=== PATIENT | male | born 1950 | race Caucasian/White ===

== ENCOUNTER 2020-01-28 11:37 | Emergency (ER) | payer MEDICARE, MEDICAID ==
[2020-01-28 11:56] VITALS: BP 166/85
[2020-01-28] MEDS ORDERED: allopurinoL 100 MG TABLET PO SCH (12:06)
[2020-01-28] MEDS ORDERED: INDOMETHACIN 25 MG CAPSULE PO STA (12:07)
--- NOTE | 2020-01-28 12:10 | ED Physician Documentation ---
History of Present Illness - Stated complaint Stated Complaint: RT LEG/FOOT PX - Chief complaint Chief Complaint: Ext Problem - Additonal information Additional information: Patient comes emergency department complaining of right lower extremity swelling which started in his ankle. He states he did not have any injury. The pain and swelling started in ankle and spread down into his foot. He states this is consistent with previous flareups of his gout. He denies any fevers or chills. He does not have any streaking going up his leg. He has noticed mild erythema. Patient denies any skin injuries recently. No puncture wound to his foot. He states that he does take medicine for gout when he has a flareup, but he cannot remember which medication he has been on. He states he has 1 kidney because of a left nephrectomy from renal carcinoma within the last few years, but states that his remaining kidney is functioning well. No other complaints at this time. Review of Systems Ten Systems: 10 systems reviewed and negative Constitutional: reports: Reviewed and negative Eyes: reports: Reviewed and negative Ears: reports: Reviewed and negative Nose: reports: Reviewed and negative Throat: reports: Reviewed and negative Cardiac: reports: Reviewed and negative Respiratory: reports: Reviewed and negative GI: reports: Reviewed and negative : reports: Reviewed and negative Skin: reports: Other (Erythema, Right foot and ankle) Musculoskeletal: reports: Joint pain (Right ankle) Neurologic: reports: Reviewed and negative Psychiatric: reports: Reviewed and negative Endocrine: reports: Reviewed and negative Immunocompromised: reports: Reviewed and negative PD PAST MEDICAL HISTORY - Past Medical History Past Medical History: Yes Cardiovascular: Hypertension, High cholesterol, Coronary artery disease, Atrial fibrillation, Murmur Endocrine/Autoimmune: Type 2 diabetes - Past Surgical History Past Surgical History: Yes General: Bowel surgery Cardiovascular: Coronary stent, AICD - Present Medications Home Medications: Ambulatory Orders Medication Instructions Recorded Confirmed Colchicine [Colcrys] 0.6 mg PO DAILY 7 Days #7 tablet 01/28/20 Metoprolol Succinate 100 mg PO 01/28/20 Oxycodone HCl/Acetaminophen 1 - 2 each PO Q6H PRN #12 tablet 01/28/20 [Percocet 5-325 mg Tablet] hydroCHLOROthiazide 12.5 mg PO 01/28/20 [Hydrochlorothiazide] metFORMIN [Glucophage] 2,000 BID 01/28/20 predniSONE [Prednisone] 60 mg PO DAILY #15 tablet 01/28/20 - Allergies Allergies/Adverse Reactions: Allergies Allergy/AdvReac Type Severity Reaction Status Date / Time No Known Drug Allergies Allergy Verified 01/28/20 11:47 - Social History Does the pt smoke?: No Smoking Status: Never smoker Does the pt drink ETOH?: No Does the pt have substance abuse?: No - Immunizations Immunizations are current?: Yes - POLST Patient has POLST: No PD ED PE NORMAL - Vitals Vital signs reviewed: Yes - General General: Alert and oriented X 3, No acute distress - HEENT HEENT: Atraumatic, PERRL, EOMI, Moist mucous membranes - Neck Neck: Supple, no meningeal sign - Cardiac Cardiac: RRR, No murmur, Strong equal pulses - Respiratory Respiratory: No respiratory distress, Clear bilaterally - Abdomen Abdomen: Soft, Non tender, Non distended - Derm Derm: Warm and dry, Other (Patient has very mild erythema of his right foot and ankle. No distinct rash. No streaking.) - Extremities Extremities: No deformity, No calf tenderness / cord, Other (Patient has moderate edema of his right foot and ankle with moderate tenderness to palpation . This is nonpitting. No contusion.) - Neuro Neuro: Alert and oriented X 3, intelligence officer 2-12 intact, No motor deficit, No sensory deficit, Normal speech - Psych Psych: Normal mood, Normal affect Results - Vitals Vitals: Vital Signs - 24 hr 01/28/20 11:51 Temperature 36.6 C Heart Rate 65 Respiratory 16 Rate Blood Pressure 166/85 H O2 Saturation 96 Oxygen O2 Source Room air PD MEDICAL DECISION MAKING - ED course Complexity details: reviewed old records, re-evaluated patient, considered differential, d/w patient ED course: Patient was given doses of allopurinol and indomethacin in the emergency department. We have discussed home management of the gout symptoms, as well as usual indications for return. Departure - Departure Disposition: 01 Home, Self Care Clinical Impression: Gout of foot Qualifiers: Gout etiology: unspecified cause Chronicity: acute Laterality: right Qualified Code(s): M10.9 - Gout, unspecified Instructions: ED Arthritis Gout Prescriptions: Colchicine [Colcrys] 0.6 mg PO DAILY 7 Days #7 tablet Oxycodone HCl/Acetaminophen [Percocet 5-325 mg Tablet] 1 - 2 each PO Q6H PRN #12 tablet PRN Reason: pain predniSONE [Prednisone] 60 mg PO DAILY #15 tablet Discharge Date/Time: 01/28/20 12:41
[2020-01-28] MEDS ORDERED: allopurinoL 100 MG TABLET PO STA (12:13)
== END 2020-01-28 12:41 | disposition home or self-care (01) ==
LOC: ED 11:37
DX: M10.9 Gout, unspecified (principal); I10 Essential (primary) hypertension; E11.9 Type 2 diabetes mellitus without complications; Z79.84 Long term (current) use of oral hypoglycemic drugs; Z90.5 Acquired absence of kidney
CPT/HCPCS: 99282; 99284; A9270

== ENCOUNTER 2022-09-11 21:41 | Emergency (ER) | payer MEDICARE, MEDICAID ==
[2022-09-11] MEDS ORDERED: TETANUS/DIPHTHERIA/PERTUSSIS 0.5 ML SYRINGE IM ONE (21:58)
[2022-09-11] MEDS ORDERED: HYDROmorphone 1 MG/ML CARPUJECT IVP STA ×2 (21:59→23:16)
[2022-09-11] MEDS ORDERED: BUPIVACAINE 0.5% PF 10 ML VIAL SUBQ STA (22:20)
[2022-09-11] MEDS ORDERED: BUPIVACAINE 0.25% PF 30 ML VIAL SUBQ STA (22:20)
[2022-09-11 22:22] LABS: BASOPHILS % (AUTO) 0.5 %; EOSINOPHILS # (AUTO) 0.1 10^3/uL (0.0-0.7); EOSINOPHILS % (AUTO) 1.2 %; HCT - HEMATOCRIT 40.9 % (42.0-52.0); HGB - HEMOGLOBIN 14.1 g/dL (14.0-18.0); LYMPHOCYTES # (AUTO) 2.3 10^3/uL (1.5-3.5); LYMPHOCYTES % (AUTO) 38.3 %; MEAN CORPUSCULAR HEMOGLOBIN 30.8 pg (27.0-31.0); MEAN CORPUSCULAR HGB CONC 34.5 g/dL (32.0-36.0); MEAN CORPUSCULAR VOLUME 89.3 fL (80.0-94.0); MONOCYTES # (AUTO) 0.6 10^3/uL (0.0-1.0); MONOCYTES % (AUTO) 9.2 %; NEUTROPHILS % (AUTO) 50.5 %; PLT - PLATELET COUNT 116 10^3/uL (130-450); RED BLOOD COUNT 4.58 10^6/uL (4.70-6.10); RED CELL DISTRIBUTION WIDTH 12.7 % (12.0-15.0)
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
[2022-09-11 22:33] LABS: ALBUMIN 4.8 g/dL (3.2-5.5); ALBUMIN/GLOBULIN RATIO 1.3 (1.0-2.2); BILIRUBIN,TOTAL 0.5 mg/dL (0.2-1.0); CALCIUM 9.1 mg/dL (8.5-10.3); CREATININE 1.7 mg/dL (0.6-1.2); POTASSIUM 3.8 mmol/L (3.5-5.0); TOTAL PROTEIN 8.5 g/dL (6.7-8.2)
[2022-09-11 22:41] LABS: INR 0.9 (0.8-1.2); PT - PROTHROMBIN TIME 10.7 secs (9.9-12.6)
[2022-09-11] MEDS ORDERED: ceFAZolin 1 GM in SODIUM CHLORIDE 0.9% MINIBAG 100 ML IV STA (22:43)
[2022-09-11] MEDS ORDERED: ceFAZolin 2 GM in SODIUM CHLORIDE 0.9% 100ML 100 ML IV STA (22:46)
[2022-09-11] MEDS ORDERED: GENTAMICIN IV ONE (22:47)
[2022-09-11] MEDS ORDERED: SODIUM CHLORIDE 0.9% IV ONE (22:47)
[2022-09-11] MEDS ORDERED: ceFAZolin 1 GM VIAL ONE (23:03)
[2022-09-11 23:49] VITALS: BP 168/100
[2022-09-12 00:23] LABS: B. PARAPERTUSSIS- RESP PCR PAN NOT DETECTED; B. PERTUSSIS- RESP PCR PANEL NOT DETECTED; C. PNEUMONIAE- RESP PCR PANEL NOT DETECTED; CORONAVIRUS 229E-RESP PCR NOT DETECTED; CORONAVIRUS HKU1-RESP PCR NOT DETECTED; CORONAVIRUS NL63-RESP PCR NOT DETECTED; CORONAVIRUS OC43-RESP PCR NOT DETECTED; HUMAN METAPNEUMOVIRUS NOT DETECTED; INFLUENZA A- RESP PCR PANEL NOT DETECTED; INFLUENZA B - RESP PCR PANEL NOT DETECTED; M. PNEUMONIAE- RESP PCR PANEL NOT DETECTED; PARAINFLUENZA VIRUS 1 NOT DETECTED; PARAINFLUENZA VIRUS 2 NOT DETECTED; PARAINFLUENZA VIRUS 3 NOT DETECTED; PARAINFLUENZA VIRUS 4 NOT DETECTED; RHINOVIRUS/ENTEROVIRUS NOT DETECTED; RSV- RESP PCR PANEL NOT DETECTED; SARS-CoV-2 -RESP PCR PANEL NOT DETECTED
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
== END 2022-09-11 23:52 | disposition short-term general hospital (02) ==
LOC: ED 21:41
DX: S62.392B Other fracture of third metacarpal bone, right hand, initial encounter for open fracture (principal); S62.614B Displaced fracture of proximal phalanx of right ring finger, initial encounter for open fracture; S62.616B Displaced fracture of proximal phalanx of right little finger, initial encounter for open fracture; W34.00XA Accidental discharge from unspecified firearms or gun, initial encounter
CPT/HCPCS: 36415; 64450; 73130; 80053; 83690; 85025; 85610; 87633; 90471; 90715; 96365; 96375; 96376; 99285; J1170; J1580

== ENCOUNTER 2022-09-11 23:50 | Outpatient (CLI) | payer MEDICARE, MEDICAID | END 2022-09-11 23:51 | disposition short-term general hospital (02) | LOC: EMS 23:50 | PROVIDERS: ATTEND Emergency Medicine | DX: S62.91XB Unspecified fracture of right hand, initial encounter for open fracture (principal); X95.9XXA Assault by unspecified firearm discharge, initial encounter | CPT/HCPCS: A0425; A0426 ==

== ENCOUNTER 2022-09-14 14:53 | Emergency (ER) | payer MEDICARE, MEDICAID ==
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
[2022-09-14 16:01] LABS: BASOPHILS % (AUTO) 0.7 %; EOSINOPHILS % (AUTO) 0.9 %; HCT - HEMATOCRIT 32.6 % (42.0-52.0); LYMPHOCYTES # (AUTO) 0.9 10^3/uL (1.5-3.5); LYMPHOCYTES % (AUTO) 18.6 %; MEAN CORPUSCULAR HEMOGLOBIN 30.6 pg (27.0-31.0); MEAN CORPUSCULAR HGB CONC 33.7 g/dL (32.0-36.0); MEAN CORPUSCULAR VOLUME 90.8 fL (80.0-94.0); MEAN PLATELET VOLUME 11.9 fL (7.4-11.4); MONOCYTES # (AUTO) 0.4 10^3/uL (0.0-1.0); MONOCYTES % (AUTO) 9.6 %; NEUTROPHILS # (AUTO) 3.2 10^3/uL (1.5-6.6); NEUTROPHILS % (AUTO) 69.8 %; PLT - PLATELET COUNT 74 10^3/uL (130-450); RED BLOOD COUNT 3.59 10^6/uL (4.70-6.10); RED CELL DISTRIBUTION WIDTH 12.6 % (12.0-15.0); WHITE BLOOD COUNT 4.6 x10^3/uL (4.8-10.8)
[2022-09-14 16:07] LABS: CALCIUM 8.6 mg/dL (8.5-10.3); CREATININE 1.9 mg/dL (0.6-1.2); MAGNESIUM 1.8 mg/dL (1.7-2.8); PHOSPHORUS 2.6 mg/dL (2.5-4.6); POTASSIUM 3.4 mmol/L (3.5-5.0)
[2022-09-14] MEDS ORDERED: AMIODARONE 200 MG TABLET PO STA (16:25)
[2022-09-14 16:37] VITALS: BP 154/100
== END 2022-09-14 16:42 | disposition home or self-care (01) ==
LOC: ED 14:53
DX: Z45.02 Encounter for adjustment and management of automatic implantable cardiac defibrillator (principal); Z95.810 Presence of automatic (implantable) cardiac defibrillator; I48.91 Unspecified atrial fibrillation; I10 Essential (primary) hypertension; E11.9 Type 2 diabetes mellitus without complications; Z79.84 Long term (current) use of oral hypoglycemic drugs
CPT/HCPCS: 36415; 80048; 83735; 84100; 85025; 93005; 99283; 99284; A9270

== ENCOUNTER 2022-09-14 22:29 | Outpatient (CLI) | payer MEDICARE, MEDICAID | END 2022-09-14 23:59 | disposition critical access hospital (66) | LOC: EMS 22:29 | DX: R06.81 Apnea, not elsewhere classified (principal); I49.9 Cardiac arrhythmia, unspecified; R47.81 Slurred speech | CPT/HCPCS: A0425; A0427 ==

== ENCOUNTER 2023-01-17 16:14 | Outpatient (CLI) | payer MEDICARE, MEDICAID | END 2023-01-17 23:59 | disposition short-term general hospital (02) | LOC: EMS 16:14 | DX: I49.8 Other specified cardiac arrhythmias (principal); I45.10 Unspecified right bundle-branch block; Z95.810 Presence of automatic (implantable) cardiac defibrillator | CPT/HCPCS: A0425; A0427 ==

== ENCOUNTER 2024-03-14 12:28 | Outpatient (CLI) | payer MEDICARE, MEDICAID | END 2024-03-14 23:59 | disposition critical access hospital (66) | LOC: EMS 12:28 | DX: M25.512 Pain in left shoulder (principal); M25.511 Pain in right shoulder; V43.52XA Car driver injured in collision with other type car in traffic accident, initial encounter; Y92.413 State road as the place of occurrence of the external cause; E11.65 Type 2 diabetes mellitus with hyperglycemia | CPT/HCPCS: A0425; A0427 ==

== ENCOUNTER 2024-03-14 12:44 | Emergency (ER) | payer MEDICARE, MEDICAID ==
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
[2024-03-14] MEDS: SODIUM CHLORIDE 0.9% 1,000 ML IV STA (13:09)
[2024-03-14 13:24] LABS: BASOPHILS % (AUTO) 0.5 %; EOSINOPHILS % (AUTO) 0.2 %; HCT - HEMATOCRIT 35.1 % (42.0-52.0); LYMPHOCYTES # (AUTO) 0.8 10^3/uL (1.5-3.5); LYMPHOCYTES % (AUTO) 20.9 %; MEAN CORPUSCULAR HEMOGLOBIN 30.3 pg (27.0-31.0); MEAN CORPUSCULAR HGB CONC 34.2 g/dL (32.0-36.0); MEAN CORPUSCULAR VOLUME 88.6 fL (80.0-94.0); MEAN PLATELET VOLUME 11.6 fL (7.4-11.4); MONOCYTES # (AUTO) 0.2 10^3/uL (0.0-1.0); MONOCYTES % (AUTO) 5.5 %; NEUTROPHILS # (AUTO) 2.9 10^3/uL (1.5-6.6); NEUTROPHILS % (AUTO) 72.7 %; PLT - PLATELET COUNT 121 10^3/uL (130-450); RED BLOOD COUNT 3.96 10^6/uL (4.70-6.10); RED CELL DISTRIBUTION WIDTH 12.2 % (12.0-15.0)
[2024-03-14 13:32] LABS: VBG HCO3 17.9 mmol/L (23-28); VBG PCO2 28.5 mmHg (41-51); VBG PH 7.406 (7.31-7.41)
[2024-03-14 13:37] LABS: MAGNESIUM 1.4 mg/dL (1.7-2.3)
[2024-03-14 13:41] LABS: ALBUMIN 3.9 g/dL (3.2-5.5); ALBUMIN/GLOBULIN RATIO 1.4 (1.0-2.2); ALKALINE PHOSPHATASE 108 IU/L (42-121); ALT ALANINE AMINOTRANSFERASE 17 IU/L (10-60); AST ASPARTATE AMINOTRANSFERASE 16 IU/L (10-42); BILIRUBIN,TOTAL 0.7 mg/dL (0.2-1.0); BUN - BLOOD UREA NITROGEN 26 mg/dL (6-20); CALCIUM 9.2 mg/dL (8.5-10.3); CARBON DIOXIDE - CO2 20 mmol/L (21-32); CHLORIDE 98 mmol/L (101-111); CREATININE 1.5 mg/dL (0.6-1.3); GFR - MDRD 46 (>89); GLUCOSE 584 mg/dL (74-104); KETONES, SERUM (ACETEST) SMALL (NEGATIVE); POTASSIUM 4.1 mmol/L (3.5-4.5); SODIUM 131 mmol/L (135-145); TOTAL PROTEIN 6.7 g/dL (6.4-8.9)
[2024-03-14] MEDS: INSULIN REGULAR HUMAN 300 UNIT/3 ML VIAL IVP STA (13:59)
[2024-03-14] MEDS: INSULIN GLARGINE-YFGN 300 UNIT/3 ML PEN SUBQ STA (14:05)
[2024-03-14 14:24] VITALS: BP 151/15; O2SAT 100
== END 2024-03-14 14:18 | disposition home or self-care (01) ==
LOC: EDUNIT# → ED 12:44
DX: R55 Syncope and collapse (principal); E86.0 Dehydration; E11.65 Type 2 diabetes mellitus with hyperglycemia; Z79.84 Long term (current) use of oral hypoglycemic drugs; Z95.810 Presence of automatic (implantable) cardiac defibrillator; V43.52XA Car driver injured in collision with other type car in traffic accident, initial encounter; Y93.89 Activity, other specified; Y92.410 Unspecified street and highway as the place of occurrence of the external cause
CPT/HCPCS: 36415; 80053; 82009; 82803; 83735; 85025; 93005; 96360; 99284; J1815